=== PATIENT | male | born 1950 | race Caucasian/White ===

== ENCOUNTER → 2017-12-19 | Outpatient (CLI) | payer OTHER ==
[~2017-12-19] MED LIST: ACIPHEX 20 MG T20 M1 PO; ALBUTEROL2.5 MG/0.1 INH; BUSPIRONE HCL7.5 MG PO; EFFEXOR XR75 MG PO; MULTIVITAMINS1 EAC7 PO; NASONEX17 GM NASAL; OXYCONTIN10 M1 PO; OXYCONTIN40 MG PO; PERCOCET 5-3251 EACH PO; PREDNISONE 20 M20 M1 PO; PROAIR HFA8.5 GM INH; RANITIDINE 150150 M1 PO; REGLAN 10 MG TA10 M1 PO; RESTORIL30 MG PO; SINGULAIR 10 MG10 M1 PO; SPIRIVA INH; TAMSULOSIN HCL0.4 M1 PO; ZYRTEC 10 MG TA10 M1 PO
--- NOTE | ~2017-12-19 | 2DMMODE ---
[facility] [place] [address] 2 D/M-MODE ECHOCARDIOGRAM Name: BEATA BELLO Room #: REG [facility]#: [id number] Admission: 12/19/17 Attend Phys: Adolfo Berger, Discharge: Date of : 50 Date of Service: 12/19/17 1146 Report #: [id number] THIS REPORT FOR: //name// APPROVED REPORT Study performed: 12/19/2017 11:14:35 EXAM: Comprehensive 2D, Doppler, and color-flow Echocardiogram Patient Location: Out-Patient Status: routine BSA: 1.95 HR: 82 bpm BP: 148/73 mmHg Rhythm: NSR Other Information Study Quality: Good Indications Short of breath. Hx: COPD. Pericardial effusion with centesis 2011. 2D Dimensions RVDd: 40.85 mm LVEF(%): 56.55 (>50%) IVSd: 10.16 (7-11mm) LVOT Diam: 20.25 (18-24mm) LVDd: 41.81 mm PWd: 9.90 (7-11mm) LVDs: 29.57 (25-40mm) Aortic Root: 32.29 mm Montgomery's LVEF: 56.55 % Volumes Left Atrial Volume (Systole) Single Plane 4CH: 43.93 mL Single Plane 2CH: 52.51 mL LA ESV Index: 27.00 mL/m2 Aortic Valve AoV Peak Jimmy.: 1.53 m/s AO Peak Gr.: 9.41 mmHg LVOT Max P.55 mmHg LVOT Max V: 1.46 m/s THOR Vmax: 3.07 cm2 Mitral Valve E/A Ratio: 1.1 [facility] [address] [place] [address] 2 D/M-MODE ECHOCARDIOGRAM Name: BEATA BELLO Room #: [facility]#: [id number] Admission: 12/19/17 Attend Phys: Adolfo Berger, Discharge: Date of : 50 Date of Service: 12/19/17 1146 Report #: [id number] MV Decel. Time: 205.77 ms MV E Max Jimmy.: 1.05 m/s MV A Jimmy.: 0.93 m/s MV PHT: 59.67 ms IVRT: 58.82 ms Pulmonary Valve PV Peak Jimmy.: 1.21 m/s PV Peak Gr.: 5.90 mmHg Pulmonary Vein P Vein S: 0.87 m/s P Vein D: 0.75 m/s P Vein S/D Ratio: 1.16 Tricuspid Valve TR Peak Jimmy.: 2.91 m/s RAP Estimate: 5.00 mmHg TR Peak Gr.: 33.98 mmHg PA Pressure: 39.00 mmHg Left Ventricle The left ventricle is normal size. There is normal LV segmental wall motion. There is normal left ventricular wall thickness. Left ventricular systolic function is normal. LVEF is 55-60%. Left ventricular filling pattern is normal for age. Right Ventricle The right ventricle is normal size. The right ventricular systolic function is normal. Atria The left atrium size is normal. The right atrium size is normal. Aortic Valve The aortic valve is normal in structure. No aortic regurgitation is present. There is no aortic valvular stenosis. Mitral Valve The mitral valve is normal in structure. There is no mitral valve regurgitation noted. No evidence of mitral valve stenosis. Tricuspid Valve The tricuspid valve is normal in structure. Mild tricuspid regurgitation. Estimated PAP is 40mmHg. Pulmonic Valve [facility] [address] [place] [address] 2 D/M-MODE ECHOCARDIOGRAM Name: BELLOBEATA Silvestre Room #: REG [facility]#: [id number] Admission: 12/19/17 Attend Phys: Adolfo Berger, Discharge: Date of : 50 Date of Service: 12/19/17 1146 Report #: [id number] The pulmonary valve is normal in structure. Trace pulmonic regurgitation. Great Vessels The aortic root is normal in size. Ascending aorta is not well visualized. IVC is normal in size and collapses >50% with inspiration. Pericardium There is no pericardial effusion. <Conclusion> The left ventricle is normal size. LVEF is 55-60%. The aortic valve is normal in structure. The mitral valve is normal in structure. The tricuspid valve is normal in structure. Mild tricuspid regurgitation. Estimated PAP is 40mmHg. The pulmonary valve is normal in structure. Trace pulmonic regurgitation. There is no pericardial effusion. <ELECTRONICALLY SIGNED> By: Dean Ibarra MD 12/19/17 1146 1146 1146 Dean Ibarra MD /INF
== END ==
LOC: CV 08:56
DX: I07.1 Rheumatic tricuspid insufficiency (principal); R06.00 Dyspnea, unspecified; J44.9 Chronic obstructive pulmonary disease, unspecified

== ENCOUNTER → 2018-08-25 | Outpatient (CLI) | payer OTHER | LOC: HYPER 08-19 15:16 | DX: I87.323 Chronic venous hypertension (idiopathic) with inflammation of bilateral lower extremity (principal); I89.0 Lymphedema, not elsewhere classified; I87.2 Venous insufficiency (chronic) (peripheral); G47.33 Obstructive sleep apnea (adult) (pediatric); J44.9 Chronic obstructive pulmonary disease, unspecified; K21.9 Gastro-esophageal reflux disease without esophagitis; F17.200 Nicotine dependence, unspecified, uncomplicated; F41.9 Anxiety disorder, unspecified; F32.9 Major depressive disorder, single episode, unspecified ==

== ENCOUNTER → 2018-10-20 | Outpatient (CLI) | payer OTHER | LOC: CAT 09:30 | DX: J43.2 Centrilobular emphysema (principal); I70.0 Atherosclerosis of aorta; I25.10 Atherosclerotic heart disease of native coronary artery without angina pectoris; Z88.5 Allergy status to narcotic agent; Z87.891 Personal history of nicotine dependence; Z87.81 Personal history of (healed) traumatic fracture ==

== ENCOUNTER → 2020-07-26 | Outpatient (CLI) | payer OTHER | LOC: LAB 09:17 | PROVIDERS: ATTEND Internal Medicine | DX: Z01.812 Encounter for preprocedural laboratory examination (principal); Z20.828 Contact with and (suspected) exposure to other viral communicable diseases ==

== ENCOUNTER → 2020-07-31 | Outpatient (CLI) | payer OTHER ==
--- NOTE | 2020-08-01 21:36 | SLE ---
[facility] [place] [address] [place] [address] POLYSOMNOGRAPHY STUDY Name: BEATA BELLO Silvestre Room #: REG [facility]#: [id number] Admission: 07/31/20 Attend Phys: Adolfo Berger MD Discharge: Date of : 50 Report #: [id number] THIS REPORT FOR: cc: Aide El Christine L. DO Khan, Aman U. MD ~ DATE OF SERVICE: 07/31/2020 SLEEP STUDY ATTENDING PHYSICIAN: Dr. Adolfo Berger. The patient is 69 years old who weighs 155 pounds with a BMI of 24.3. The patient's Enders score was 9. The patient has history of severe COPD and has been on home oxygen at 3 liters. The patient also has a history of sleep apnea. The patient has been on CPAP for 4 years. 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 During the night study, the patient spent 494 minutes in bed and slept for 347 minutes with a sleep efficiency of 70%. Sleep latency was 4.7 minutes with a REM latency of 409 minutes. Overall, sleep architecture showed increased stage 1 sleep, which was 54% of total sleep time, normal N2 sleep, which was 45% of total sleep time. Absent N3 sleep and significantly reduced REM sleep, which is only 0.3% of total sleep time. During the night of the study, the patient had 3 obstructive apneas, no mixed apneas, 1 central apnea and 36 hypopneas. The patient's AHI was 6.9 per hour with a supine AHI of 6.9 per hour and no significant REM sleep was observed to determine REM-related AHI. EKG monitoring revealed an average heart rate of 73 beats per minute. No sustained arrhythmias observed. No clinically significant PLM seen. The patient uses oxygen 3 liters at home. study initially was on room air. The patient reported that it is very difficult for him to sleep without the oxygen. The patient's oximetry data was divided into 3 parts. The initial time that was spent with the patient on room air was 140 minutes. At that time, the patient had 1 central apnea and 10 hypopneas with an AHI of 5.9 per hour. Then, on 0.5 liters, the patient slept for 307 minutes. The patient's AHI was 8 per hour and on 1 liter of Oxygen,patient slept for 146 the patient slept for 46 minutes with an AHI of 3.8 per hour. Due to low AHI, the patient did not meet the split night criteria for CPAP [address] [address] POLYSOMNOGRAPHY STUDY Name: BEATA BELLO Room #: REG [facility]#: [id number] Admission: 07/31/20 Attend Phys: Adolfo Berger MD Discharge: Date of : 50 Report #: [id number]. IMPRESSION: 1. Mild obstructive sleep apnea at an apnea-hypopnea index of 6.9 per hour. This study may have underestimated the severity of sleep apnea as the patient could not be completely taken off oxygen due to oxygen-dependent chronic obstructive pulmonary disease. The patient had no significant REM sleep, which may have underestimated the severity as well. 2. Nocturnal hypoxia secondary to combination of hypoventilation and sleep apnea. 3. No clinically significant periodic limb movements. 4. Poor sleep architecture with absent slow wave sleep and absent REM sleep. RECOMMENDATIONS: 1. If the patient is clinically symptomatic or has comorbid conditions, then consider treatment of sleep apnea with CPAP. 2. Once treated, then the patient should follow up in 4-6 weeks to assess compliance with CPAP and to document clinical improvement. 3. The patient would likely require supplemental oxygen with CPAP. 4. 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 5. Cautioned regarding driving until symptoms of sleep apnea resolve with the above recommendations. <ELECTRONICALLY SIGNED> By: Gabriel Cano MD 08/01/202135 20 37 Gabriel Cano MD /nt
== END ==
LOC: SLEEPLAB 10:00
PROVIDERS: ATTEND Internal Medicine
DX: G47.33 Obstructive sleep apnea (adult) (pediatric) (principal); G47.34 Idiopathic sleep related nonobstructive alveolar hypoventilation; Z68.24 Body mass index [BMI] 24.0-24.9, adult; Z88.8 Allergy status to other drugs, medicaments and biological substances

== ENCOUNTER → 2021-02-01 | Outpatient (CLI) | payer OTHER | LOC: CAT 09:21 | PROVIDERS: ATTEND Family Medicine | DX: Z12.2 Encounter for screening for malignant neoplasm of respiratory organs (principal); Z87.891 Personal history of nicotine dependence ==

== ENCOUNTER → 2021-02-27 | Outpatient (CLI) | payer OTHER | LOC: PET 08:27 | PROVIDERS: ATTEND Internal Medicine | DX: J98.11 Atelectasis (principal); R91.8 Other nonspecific abnormal finding of lung field; I70.0 Atherosclerosis of aorta; K76.0 Fatty (change of) liver, not elsewhere classified ==

== ENCOUNTER → 2021-03-27 | Outpatient (CLI) | payer OTHER | LOC: CAT 10:12 | PROVIDERS: ATTEND Internal Medicine | DX: R91.8 Other nonspecific abnormal finding of lung field (principal); J98.11 Atelectasis; K76.0 Fatty (change of) liver, not elsewhere classified ==